=== PATIENT | male | born 1980 | race African-American/Black ===

== ENCOUNTER 2017-03-18 09:39 | Emergency (ER) | payer MEDICAID ==
[~2017-03-18] VITALS: Ht 165.1 cm; Wt 57.9 kg
[2017-03-18] MEDS ORDERED: PARO10TA56 PO (10:58)
[2017-03-18] MEDS ORDERED: SODIUM CHLORIDE 0.9% 1,000 ML IV ONE (11:21)
[2017-03-18] MEDS ORDERED: ONDANSETRON 2MG/ML, 2ML IVPush ONE (11:30)
[2017-03-18] MEDS ORDERED: SODIUM CHLORIDE 0.9% 1,000ML IVBOLUS ONE ×2 (11:30→13:00)
[2017-03-18] MEDS ORDERED: SODIUM CHLORIDE FLUSH 10ML SYR IVF ONE (11:30)
[2017-03-18] MEDS ORDERED: ONDANSETRON 2MG/ML, 2ML ONE (11:34)
[2017-03-18] MEDS ORDERED: HYDROmorphone 1 MG/ML, 1ML ONE ×3 (11:34→18:21)
[2017-03-18] MEDS: HYDROmorphone 1 MG/ML, 1ML IVPush PRN ×2 (11:43→12:26)
[2017-03-18 11:59] LABS: HEMATOCRIT 43.1 % (39.2-51.8); HEMOGLOBIN 13.7 g/dL (13.7-18.0); WHITE BLOOD COUNT 4.5 x10^3/uL (3.4-10)
[2017-03-18 12:08] LABS: BLOOD UREA NITROGEN 9 mg/dL (7-18)
[2017-03-18 12:10] LABS: ASPARTATE AMINO TRANSFERASE 24 U/L (15-37)
[2017-03-18] MEDS ORDERED: MAALOX/HYOSCYAMINE/LIDOCAINE 45 ML BTL ONE (12:42)
[2017-03-18] MEDS ORDERED: MAALOX/HYOSCYAMINE/LIDOCAINE 45 ML BTL PO ONE (13:00)
[2017-03-18] MEDS ORDERED: PROMETHAZINE 25 MG/ML, 1ML IM ONE (13:00)
[2017-03-18] MEDS ORDERED: OMNIPAQUE 350 MG/ML, 100ML BOTTLE ONE (13:18)
[2017-03-18] MEDS ORDERED: PROMETHAZINE 25 MG/ML, 1ML ONE (13:37)
[2017-03-18 14:21] VITALS: BP 113/80
== END 2017-03-18 14:23 | disposition home or self-care (01) ==
LOC: ED 11:56
DX: K52.9 Noninfective gastroenteritis and colitis, unspecified (principal); E86.0 Dehydration; F41.9 Anxiety disorder, unspecified
CPT/HCPCS: 36415; 74177; 80053; 81003; 83690; 85025; 96361; 96372; 96374; 96375; 96376; 99285; J1170; J2405; J2550; J7030; Q9967

== ENCOUNTER 2017-04-09 14:56 | Inpatient (IN) | payer MEDICAID ==
[~2017-04-09] VITALS: Ht 165.1 cm; Wt 66.0 kg
[~2017-04-09 14:56] MED LIST: PARO10TA56 PO
[2017-04-09] MEDS ORDERED: SODIUM CHLORIDE 0.9% 1,000 ML IV ONE (15:06)
[2017-04-09] MEDS ORDERED: SODIUM CHLORIDE FLUSH 10ML SYR IVF ONE ×2 (15:30→17:00)
[2017-04-09 15:36] LABS: HEMATOCRIT 42.1 % (39.2-51.8); HEMOGLOBIN 13.1 g/dL (13.7-18.0); WHITE BLOOD COUNT 5.4 x10^3/uL (3.4-10)
[2017-04-09 15:45] LABS: BLOOD UREA NITROGEN 12 mg/dL (7-18)
[2017-04-09 15:51] LABS: ASPARTATE AMINO TRANSFERASE 19 U/L (15-37)
[2017-04-09] MEDS: PLEASE ENTER HEIGHT AND WEIGHT MC SCH (17:00)
[2017-04-09] MEDS ORDERED: SODIUM CHLORIDE 0.9% 1,000ML IVBOLUS ONE (17:00)
[2017-04-09] MEDS ORDERED: ONDANSETRON 2MG/ML, 2ML IVPush ONE (17:00)
[2017-04-09] MEDS ORDERED: MORPHINE SULFATE 4 MG/ML, 1ML IVPush PRN (17:00)
[2017-04-09] MEDS ORDERED: SODIUM CHLORIDE 0.9% 1,000 ML IV SCH (17:02)
[2017-04-09 17:07] LABS: IS PT STATUS REG ER OR PRE ER? YES
[2017-04-09] MEDS ORDERED: MORPHINE SULFATE 4 MG/ML, 1ML ONE (17:14)
[2017-04-09] MEDS ORDERED: ONDANSETRON 2MG/ML, 2ML ONE (17:14)
[2017-04-09] MEDS ORDERED: ASPIRIN 325 MG TABLET PO ONE (17:30)
[2017-04-09] MEDS ORDERED: HYDROcodone/APAP 5/325 TABLET PO PRN (17:30)
[2017-04-09] MEDS ORDERED: LABETALOL 5MG/ML, 20ML IVPush PRN (17:30)
[2017-04-09] MEDS ORDERED: ENOXAPARIN 40 MG/0.4 ML SQ SCH (17:30)
[2017-04-09] MEDS ORDERED: morphine SULFATE 10 MG/ML, 1ML IVPush PRN (17:30)
[2017-04-09] MEDS ORDERED: ONDANSETRON 2MG/ML, 2ML IVPush PRN (17:30)
[2017-04-09] MEDS ORDERED: POLYETHYLENE GLYCOL 17 GM PACKET PO PRN (17:30)
[2017-04-09] MEDS ORDERED: ONDANSETRON ODT 4 MG PO PRN (17:30)
[2017-04-09] MEDS: HYDROmorphone 1 MG/ML, 1ML IV PRN ×2 (18:52→23:14)
[2017-04-09 20:00] VITALS: BP 122/75
[2017-04-09] MEDS: SODIUM CHLORIDE 0.9% 1,000 ML IV SCH (21:00)
[2017-04-09] MEDS: FAMOTIDINE 20 MG/2 ML IVPush SCH (21:56)
[2017-04-09 22:16] VITALS: BP 122/75
[2017-04-09] MEDS ORDERED: ZOLP10TA PO (22:29)
[2017-04-09] MEDS ORDERED: FLU VACC QS2017-18 (36MOS+) UP/PF 0.5 ML IM-VACC ONE (23:30)
[2017-04-09] MEDS ORDERED: PNEUMOCOCCAL 23 VACCINE IM-VACC ONE (23:30)
[2017-04-09] MEDS: HYDROXYUREA 500 MG CAPSULE PO SCH (23:54)
[2017-04-10] MEDS: PLEASE ENTER HEIGHT AND WEIGHT MC SCH (01:00)
[2017-04-10 02:00] VITALS: BP 104/55
[2017-04-10] MEDS: HYDROmorphone 1 MG/ML, 1ML IV PRN ×3 (04:00→12:22)
[2017-04-10] MEDS: SODIUM CHLORIDE 0.9% 1,000 ML IV SCH ×2 (04:27→10:57)
[2017-04-10 05:46] LABS: HEMATOCRIT 37.8 % (39.2-51.8); HEMOGLOBIN 11.8 g/dL (13.7-18.0); WHITE BLOOD COUNT 6.5 x10^3/uL (3.4-10)
[2017-04-10] MEDS ORDERED: ASPIRIN 81 MG TABLET EC PO SCH (06:00)
[2017-04-10 06:02] LABS: ASPARTATE AMINO TRANSFERASE 16 U/L (15-37); BLOOD UREA NITROGEN 12 mg/dL (7-18)
[2017-04-10 08:24] LABS: IS PT STATUS REG ER OR PRE ER? NO
[2017-04-10 08:29] VITALS: BP 112/66
[2017-04-10] MEDS: FAMOTIDINE 20 MG/2 ML IVPush SCH (08:51)
[2017-04-10] MEDS: HYDROXYUREA 500 MG CAPSULE PO SCH (08:57)
[2017-04-10] MEDS ORDERED: FOLIC ACID 1 MG TABLET PO SCH (09:00)
[2017-04-10] MEDS ORDERED: PAROXETINE 10 MG TABLET PO SCH (09:00)
[2017-04-10] MEDS ORDERED: SENNA/DOCUSATE TABLET PO SCH (09:00)
[2017-04-10 12:33] LABS: DAU SCREEN DISCLAIMER
[2017-04-10 13:46] VITALS: BP 115/72
[2017-04-10] MEDS ORDERED: FOLI-17 PO (14:56)
[2017-04-10] MEDS ORDERED: CYCL5TAB PO (14:57)
[2017-04-10] MEDS ORDERED: IBUP-1221 PO (14:58)
[2017-04-10] MEDS ORDERED: SODIUM CHLORIDE 0.9% 1,000 ML IV SCH ×2 (17:02→21:00)
== END 2017-04-10 15:59 | disposition home or self-care (01) | DRG 812 ==
LOC: ED 16:21 → EDIP 17:02 → 5SO 18:21
PROVIDERS: ADMIT Internal Medicine; ATTEND Internal Medicine
PROC: 3E0234Z Introduction of Serum, Toxoid and Vaccine into Muscle, Percutaneous Approach (ICD-10-PCS; principal; 2017-04-09)
DX: D57.01 Hb-SS disease with acute chest syndrome (principal); F41.1 Generalized anxiety disorder; D50.9 Iron deficiency anemia, unspecified; M54.9 Dorsalgia, unspecified; M79.1 Myalgia; R71.8 Other abnormality of red blood cells; Z23 Encounter for immunization; Z80.9 Family history of malignant neoplasm, unspecified
CPT/HCPCS: 36415; 71010; 80053; 80307; 81003; 83690; 83735; 83880; 84439; 84484; 85025; 85045; 85379; 85610; 90686; 90732; 93005; 93306; 96374; 96375; J1170; J1650; J2405; G0479; J7030; S0028

== ENCOUNTER 2017-05-02 22:20 | Emergency (ER) | payer MEDICAID ==
[~2017-05-02] VITALS: Ht 165.1 cm; Wt 63.1 kg
[~2017-05-02 22:20] MED LIST changes: +CYCL5TAB PO; +FOLI-17 PO; +IBUP-1221 PO; +ZOLP10TA PO
[2017-05-02] MEDS ORDERED: HYDROmorphone 1 MG/ML, 1ML IV ONE (23:00)
[2017-05-02] MEDS ORDERED: ONDANSETRON 2MG/ML, 2ML IVPush ONE (23:00)
[2017-05-02] MEDS ORDERED: HYDROmorphone 1 MG/ML, 1ML ONE (23:02)
[2017-05-02] MEDS ORDERED: ONDANSETRON 2MG/ML, 2ML ONE (23:02)
[2017-05-02 23:33] LABS: HEMATOCRIT 42.3 % (39.2-51.8); HEMOGLOBIN 13.2 g/dL (13.7-18.0); WHITE BLOOD COUNT 4.4 x10^3/uL (3.4-10)
[2017-05-02 23:39] LABS: ASPARTATE AMINO TRANSFERASE 14 U/L (15-37); BLOOD UREA NITROGEN 12 mg/dL (7-18)
[2017-05-03] MEDS ORDERED: SODIUM CHLORIDE 0.9% 1,000ML IVBOLUS ONE (00:30)
[2017-05-03 02:39] VITALS: BP 154/88
== END 2017-05-03 02:41 | disposition home or self-care (01) ==
LOC: ED 22:45
DX: M54.5 Low back pain (principal); M54.6 Pain in thoracic spine; R53.1 Weakness; R53.83 Other fatigue
CPT/HCPCS: 36415; 71010; 80053; 81003; 83735; 84436; 85025; 86850; 86900; 96361; 96374; 96375; 99285; J1170; J2405; J7030